=== PATIENT | female | born 1935 | race Caucasian/White ===

== ENCOUNTER 2021-05-31 18:44 | Inpatient (IN) | payer MEDICARE ==
[~2021-05-31] VITALS: Ht 154.9 cm; Wt 46.7 kg
[2021-05-31 19:41] LABS: HEMOGLOBIN 14.2 gm/dl (14.0-17.5); RED BLOOD COUNT 4.61 M/UL (4.20-5.50); WHITE BLOOD COUNT 4.8 K/UL (4.5-11.0)
[2021-05-31 20:02] LABS: BUN/CREATININE RATIO 19 (0-10)
[2021-06-01 05:27] LABS: HEMOGLOBIN 13.1 gm/dl (14.0-17.5); RED BLOOD COUNT 4.29 M/UL (4.20-5.50); WHITE BLOOD COUNT 2.9 K/UL (4.5-11.0)
[2021-06-01 06:03] LABS: BUN/CREATININE RATIO 21 (0-10)
[2021-06-02 05:56] LABS: HEMOGLOBIN 13.5 gm/dl (12.3-15.3); RED BLOOD COUNT 4.44 M/UL (4.00-5.10)
[2021-06-02 06:13] LABS: WHITE BLOOD COUNT 4.8 K/UL (4.5-11.0)
[2021-06-02 06:35] LABS: BUN/CREATININE RATIO 30 (0-10)
[2021-06-03 05:48] LABS: HEMOGLOBIN 13.3 gm/dl (12.3-15.3); RED BLOOD COUNT 4.36 M/UL (4.00-5.10)
[2021-06-03 06:13] LABS: BUN/CREATININE RATIO 31 (0-10)
[2021-06-05 06:59] LABS: HEMOGLOBIN 14.4 gm/dl (12.3-15.3); RED BLOOD COUNT 4.75 M/UL (4.00-5.10)
[2021-06-05 07:18] LABS: WHITE BLOOD COUNT 3.6 K/UL (4.5-11.0)
[2021-06-05 07:22] LABS: BUN/CREATININE RATIO 27 (0-10)
[2021-06-06 04:34] LABS: HEMOGLOBIN 12.8 gm/dl (12.3-15.3); RED BLOOD COUNT 4.32 M/UL (4.00-5.10); WHITE BLOOD COUNT 4.3 K/UL (4.5-11.0)
[2021-06-06 04:51] LABS: BUN/CREATININE RATIO 24 (0-10)
[2021-06-06] MEDS ORDERED: LEVOFLOXACIN500 MG PO (11:47)
[2021-06-06] MEDS ORDERED: DEXAMETHASONE1 MG PO (11:47)
[2021-06-06] MEDS ORDERED: PROVENTIL HFA6.7 GM INH (11:47)
--- NOTE | 2021-06-06 19:40 | NUR ---
Patient IV removed, Discharge education completed. Patient sent home with oxygen tank on 2 liters, education on home use, patient left floor via wheelchair, vitals signs taken and documented at 1923.
== END 2021-06-06 19:23 | disposition home or self-care (01) | DRG 177 ==
LOC: ER1 18:44 → CDU 06-01 02:03 → MED SURG 4 06-01 02:03 → EDSEX 06-01 02:03 → MED SURG 4 06-01 20:49
PROVIDERS: Family Medicine; Internal Medicine; Internal Medicine Infectious Disease; ADMIT Internal Medicine
PROC: 8E0ZXY6 Isolation (ICD-10-PCS; principal; 2021-06-01)
PROC: XW033E5 Introduction of Remdesivir Anti-infective into Peripheral Vein, Percutaneous Approach, New Technology Group 5 (ICD-10-PCS; 2021-06-01)
PROC: 3E0333Z Introduction of Anti-inflammatory into Peripheral Vein, Percutaneous Approach (ICD-10-PCS; 2021-06-01)
DX: U07.1 COVID-19 (principal); J12.82 Pneumonia due to coronavirus disease 2019; J15.9 Unspecified bacterial pneumonia; J96.21 Acute and chronic respiratory failure with hypoxia; J44.0 Chronic obstructive pulmonary disease with (acute) lower respiratory infection; D61.818 Other pancytopenia; N30.00 Acute cystitis without hematuria; Z66 Do not resuscitate; D69.6 Thrombocytopenia, unspecified; Z79.899 Other long term (current) drug therapy; B96.20 Unspecified Escherichia coli [E. coli] as the cause of diseases classified elsewhere
CPT/HCPCS: 36415; 51701; 71045; 80048; 80053; 81001; 82550; 82553; 83605; 83735; 84484; 85025; 85610; 86140; 87040; 87077; 87086; 87186; 93005; 94760; 96374; 99285; J0456; J0696; J1100; J1650; J1956; J7030; U0002